=== PATIENT | male | born 1955 | race African-American/Black ===

== ENCOUNTER 2017-04-06 22:31 | Emergency (ER) | payer OTHER ==
[~2017-04-06] VITALS: Ht 188 cm; Wt 114.0 kg
[~2017-04-06 22:31] MED LIST: dilantin
[2017-04-06] MEDS ORDERED: PHENYTOIN SODIUM EXTENDED 100MG CAPSULE PO ONE (23:00)
[2017-04-06 23:15] LABS: BASOPHILS % 1.2 % (0.0-2.0); EOSINOPHILS % 1.3 % (0.0-5.0); HEMOGLOBIN. 15.5 g/dL (14.0-18.0); LYMPHOCYTES % 39.2 % (20.0-50.0); MEAN CORPUSCULAR HEMOGLOBIN 31.7 pg (28.0-32.0); MEAN CORPUSCULAR HGB CONC 34.5 g/dL (31.0-37.0); MEAN CORPUSCULAR VOLUME 92.1 fL (80.0-94.0); MEAN PLATELET VOLUME 7.2 fl (7.4-10.4); MONOCYTES % 7.7 % (2.0-8.0); NEUTROPHILS % 50.6 % (40.0-76.0); PLATELET 257 x1000/uL (130-400); RED BLOOD CELL COUNT 4.89 mill/uL (4.7-6.1); RED CELL DISTRIBUTION WIDTH 14.6 % (11.6-14.6); WHITE BLOOD COUNT 7.5 x1000/uL (4.5-11.0)
[2017-04-06 23:27] LABS: ANION GAP 14; CALCIUM 8.6 mg/dL (8.5-10.1); CARBON DIOXIDE 23 mEq/L (21-32); CHLORIDE 106 mEq/L (98-107); INDEX HEMOLYSI 1 (1-3); INDEX ICTERIC 1 (1-4); INDEX LIPEMIC 1 (1-3); PHENYTOIN 0.5 ug/mL (10-20); UREA NITROGEN BLOOD 13 mg/dL (7-21); eGFR > 60 mL/min (>60)
[2017-04-06] MEDS ORDERED: PHENYTOIN SODIUM 500 MG in SODIUM CHLORIDE 0.9% 50 ML IV ONE (23:45)
[2017-04-07 04:30] VITALS: BP 116/72
== END 2017-04-07 06:06 | disposition home or self-care (01) ==
LOC: ER 22:32
DX: R56.9 Unspecified convulsions (principal); R79.9 Abnormal finding of blood chemistry, unspecified; I10 Essential (primary) hypertension
CPT/HCPCS: 36415; 80048; 80185; 82962; 85025; 93005; 96365; 99285; J1165

== ENCOUNTER 2024-07-24 18:34 | Emergency (ER) | payer MEDICARE, OTHER ==
[~2024-07-24] VITALS: Ht 182.9 cm; Wt 125.0 kg
[~2024-07-24 18:34] MED LIST changes: +ALBU6.7H3 INH; +ASPI-1160 PO; +COR12 PO; +FURO-151 MT; +LISI2.5T47 PO; +PHEN100C4 PO
[2024-07-24 18:40] VITALS: O2SAT 92
[2024-07-24] MEDS ORDERED: SODIUM CHLORIDE 0.9% 1,000 ML IV ONE (19:00)
[2024-07-24 19:07] VITALS: TEMP 37.28076
[2024-07-24] MEDS: LORAZEPAM 2MG/ML INJ IM ONE (19:30)
[2024-07-24 20:22] VITALS: BP 123/80; PULSE 87; RESP 29; O2SAT 97
[2024-07-24 20:29] LABS: CLARITY URINE CLEAR (CLEAR); COLOR URINE YELLOW (YELLOW); GLUCOSE URINE NEGATIVE (NEGATIVE); KETONES URINE TRACE (NEGATIVE); LEUKOCYTE ESTERASE URINE NEGATIVE (NEGATIVE); NITRITE URINE NEGATIVE (NEGATIVE); OCCULT BLOOD URINE TRACE (NEGATIVE); PH URINE 5.5 (4.5-8.0); PROTEIN URINE 3+ (NEGATIVE); SPECIFIC GRAVITY URINE 1.016 (1.005-1.030); UROBILINOGEN URINE 0.2 E.U./dL (0.2-1.0)
[2024-07-24 20:46] LABS: *AMPHETAMINES SCREEN URINE NEGATIVE (NEGATIVE); *BARBITURATES SCREEN URINE NEGATIVE (NEGATIVE); *BENZODIAZEPINES SCREEN URINE NEGATIVE (NEGATIVE); *COCAINE SCREEN URINE NEGATIVE (NEGATIVE); CANNABINOID URINE SCREEN NEGATIVE (NEGATIVE); ECSTASY MDMA SCREEN URINE NEGATIVE (NEGATIVE); METHADONE URINE SCREEN NEGATIVE (NEGATIVE); OPIATES URINE SCREEN NEGATIVE (NEGATIVE); PHENCYCLIDINE URINE SCREEN NEGATIVE (NEGATIVE)
[2024-07-24 20:47] LABS: BACTERIA URINE 1+; RBC URINE 0-2 /hpf (0-2); SQUAMOUS EPITHELIAL CELL URINE FEW /lpf (RARE/1+); WBC URINE 0-2 /hpf (0-2)
== END 2024-07-24 21:50 | disposition left against medical advice (07) ==
LOC: ER 18:34 → EDBEDREQ 20:54 → EDBEDREQTM 20:54 → ER 21:50
DX: G93.49 Other encephalopathy (principal); F10.20 Alcohol dependence, uncomplicated; G40.909 Epilepsy, unspecified, not intractable, without status epilepticus; I11.9 Hypertensive heart disease without heart failure; I25.2 Old myocardial infarction
CPT/HCPCS: 80305; 81003; 71045; 96372; 99284; J2060; J7030; Z7610